=== PATIENT | male | born 1960 | race Caucasian/White ===

== ENCOUNTER → 2017-11-08 | Outpatient (CLI) | payer OTHER | LOC: CARDREHAB 14:30 → RAD 15:00 | DX: R94.31 Abnormal electrocardiogram [ECG] [EKG] (principal) ==

== ENCOUNTER → 2017-11-12 | Outpatient (CLI) | payer OTHER | LOC: VAS 16:06 | DX: R94.31 Abnormal electrocardiogram [ECG] [EKG] (principal) ==

== ENCOUNTER 2019-05-23 17:43 | Emergency (ER) | payer OTHER ==
[2019-05-23] MEDS ORDERED: METOPROLOL SUCC50 M1 PO (18:08)
[2019-05-23 18:52] LABS: EOS # 0.4 (0.04-0.40); EOS % 4.1 % (0.0-4.0); HEMATOCRIT 47.8 % (42.0-52.0); HEMOGLOBIN 16.5 g/dL (13.5-18.0); LYMPH# 1.3 (1.50-4.00); MEAN CELL VOLUME 91 fl (78-100); MEAN CORPUSCULAR HEMOGLOBIN 31 pg (27-31); MEAN CORPUSCULAR HGB CONC 35 g/dL (33-37); MEAN PLATELET VOLUME 10.3 fl (7.4-10.4); MONO # 0.8 (0.20-0.80); NEU # 5.9 (1.40-6.50); PLATELET COUNT 206 K/mm3 (130-400); RED BLOOD COUNT 5.25 M/mm3 (4.20-5.60); RED CELL DISTRIBUTION WIDTH 12.4 % (11.5-14.5); WHITE BLOOD COUNT 8.4 K/mm3 (4.8-10.8)
[2019-05-23 19:00] LABS: ALBUMIN 4.3 g/dL (3.5-5.0)
[2019-05-23 19:01] LABS: CALCIUM 9.4 mg/dL (8.3-10.5)
[2019-05-23 19:03] LABS: TOTAL PROTEIN 7.3 g/dL (6.4-8.3)
[2019-05-23 19:04] LABS: TOTAL BILIRUBIN 0.5 mg/dL (0.2-1.2)
[2019-05-23] MEDS ORDERED: PREDNISONE20 M1 PO (20:17)
[2019-05-23 20:31] VITALS: BP 152/88
== END 2019-05-23 20:30 | disposition home or self-care (01) ==
LOC: ED 17:43
PROVIDERS: Family Medicine
DX: J45.909 Unspecified asthma, uncomplicated (principal); I10 Essential (primary) hypertension; Z90.49 Acquired absence of other specified parts of digestive tract
CPT/HCPCS: J7512

== ENCOUNTER → 2023-05-28 | Outpatient (CLI) | payer OTHER ==
[~2023-05-28] MED LIST: METOPROLOL SUCC50 M1 PO; PREDNISONE20 M1 PO
== END ==
LOC: RAD 13:32
DX: M17.11 Unilateral primary osteoarthritis, right knee (principal); M25.461 Effusion, right knee

== ENCOUNTER 2023-10-19 12:27 | Emergency (ER) | payer OTHER ==
[~2023-10-19] VITALS: Wt 98.3 kg
[~2023-10-19 12:27] MED LIST changes: +ALBUTEROL2.5 MG/3 M IH; +ALDACTONE 25MG25 MG; +BENZONATATE100 M2 PO; +CITALOPRAM HBR10 MG PO; +CLARITIN LIQUI-10 MG; +COUGH100 MG/51 PO; +FARXIGA10 MG; +FOLIC ACID1 MG; +FUROSEMIDE40 MG PO; +KAPSPARGO SPRIN50 MG; +LEVALBUTEROL TA15 GM IH; +LISINOPRIL10 MG; +LOSARTAN POTASS25 MG PO; +METOPROLOL SUC100 M1; +NATURE'S BLEND100 M2; +NEB IH; +PREDNISONE10 MG PO; +QVAR REDIHALE10.6 G1 IH; +ZITHROMAX Z PA250 MG PO
[2023-10-19 13:17] LABS: BASO # 0.06 K/mm3 (0.02-0.10); EOS # 1.52 K/mm3 (0.04-0.40); EOS % 21.9 % (0.0-4.0); HEMOGLOBIN 14.4 g/dL (13.5-18.0); LYMPH# 1.12 K/mm3 (1.50-4.00); MEAN CELL VOLUME 97 fl (78-100); MEAN CORPUSCULAR HEMOGLOBIN 33 pg (27-31); MEAN CORPUSCULAR HGB CONC 34 g/dL (33-37); MEAN PLATELET VOLUME 10.4 fl (7.4-10.4); MONO # 0.54 K/mm3 (0.20-0.80); NEU # 3.71 K/mm3 (1.40-6.50); PLATELET COUNT 173 K/mm3 (130-400); RED BLOOD COUNT 4.33 M/mm3 (4.20-5.60); RED CELL DISTRIBUTION WIDTH 12.5 % (11.5-14.5)
[2023-10-19 13:20] LABS: ALBUMIN 4.2 g/dL (3.4-4.8)
[2023-10-19 13:22] LABS: CALCIUM 9.3 mg/dL (8.3-10.5)
[2023-10-19 13:23] LABS: TOTAL PROTEIN 6.6 g/dL (6.2-8.1)
[2023-10-19 13:25] LABS: TOTAL BILIRUBIN 0.3 mg/dL (0.2-1.2)
[2023-10-19 13:36] LABS: D-DIMER 0.54 mg/L FEU (0.15-0.50)
[2023-10-19] MEDS ORDERED: Iohexol 350 - 100 ML VIAL IV ONE (13:56)
[2023-10-19] MEDS ORDERED: Albuterol 0.083% Nebule (2.5 MG/3 ML) IH ONE (15:00)
[2023-10-19] MEDS ORDERED: Furosemide 40 MG/4 ML VIAL IV ONE (15:15)
[2023-10-19] MEDS ORDERED: LORazepam 2 MG/ML VIAL IV ONE (15:45)
[2023-10-19 16:27] LABS: URINE APPEARANCE CLEAR (CLEAR); URINE COLOR YELLOW (YELLOW)
[2023-10-19 16:28] LABS: URINE BILIRUBIN NEGATIVE (NEGATIVE); URINE BLOOD NEGATIVE (NEGATIVE); URINE GLUCOSE NEGATIVE (NEGATIVE); URINE KETONE NEGATIVE (NEGATIVE); URINE LEUKOCYTE ESTERASE NEGATIVE (NEGATIVE); URINE NITRATE NEGATIVE (NEGATIVE); URINE PROTEIN(semi-quant) NEGATIVE (NEGATIVE)
[2023-10-19 16:29] LABS: URINE WBC 0-1 /hpf (0-3)
[2023-10-19 20:33] VITALS: BP 123/72
== END 2023-10-19 17:30 | disposition short-term general hospital (02) ==
LOC: ED 12:27
PROVIDERS: Nurse Practitioner Family
DX: R06.02 Shortness of breath (principal); J98.09 Other diseases of bronchus, not elsewhere classified
CPT/HCPCS: J1940; J2060; Q9967

== ENCOUNTER 2024-01-18 20:33 | Emergency (ER) | payer OTHER ==
[~2024-01-18] VITALS: Ht 190.5 cm; Wt 98.3 kg
[2024-01-18 21:09] LABS: BASO # 0.06 K/mm3 (0.02-0.10); EOS # 1.04 K/mm3 (0.04-0.40); EOS % 14.9 % (0.0-4.0); HEMATOCRIT 42.2 % (42.0-52.0); HEMOGLOBIN 14.4 g/dL (13.5-18.0); LYMPH# 1.39 K/mm3 (1.50-4.00); MEAN CELL VOLUME 95 fl (78-100); MEAN CORPUSCULAR HEMOGLOBIN 32 pg (27-31); MEAN CORPUSCULAR HGB CONC 34 g/dL (33-37); MEAN PLATELET VOLUME 9.7 fl (7.4-10.4); MONO # 0.53 K/mm3 (0.20-0.80); NEU # 3.94 K/mm3 (1.40-6.50); PLATELET COUNT 199 K/mm3 (130-400); RED BLOOD COUNT 4.45 M/mm3 (4.20-5.60); RED CELL DISTRIBUTION WIDTH 11.8 % (11.5-14.5)
[2024-01-18] MEDS ORDERED: ELIQUIS5 MG PO (21:10)
[2024-01-18] MEDS ORDERED: COREG 3.123.125 MG/T PO (21:11)
[2024-01-18] MEDS ORDERED: Albuterol/Ipratropium 3 MG-0.5 MG/3 ML Neb Soln IH ONE (21:15)
[2024-01-18 21:16] LABS: ALBUMIN 4.2 g/dL (3.4-4.8); SODIUM 137 mmol/L (136-145)
[2024-01-18] MEDS ORDERED: ROXICODONE 55 MG/TAB PO (21:16)
[2024-01-18] MEDS ORDERED: ENTRESTO 24 MG1 EACH PO (21:17)
[2024-01-18 21:18] LABS: CALCIUM 9.6 mg/dL (8.3-10.5)
[2024-01-18 21:19] LABS: GLUCOSE 98 mg/dL (75-110); TOTAL PROTEIN 6.7 g/dL (6.2-8.1)
[2024-01-18 21:20] LABS: CARBON DIOXIDE 23 mmol/L (23-31)
[2024-01-18 21:21] LABS: TOTAL BILIRUBIN 0.4 mg/dL (0.2-1.2)
[2024-01-18 21:24] LABS: AST-SGOT 17 U/L (5-34)
[2024-01-18 21:25] LABS: ALT/SGPT 17 U/L (0-55)
[2024-01-18 21:31] LABS: TROPONIN-I < 0.030 ng/mL (0.00-0.033)
[2024-01-18] MEDS ORDERED: PREDNISONE20 MG PO (21:57)
[2024-01-18] MEDS ORDERED: methylPREDNISolone Sod Succ 125 MG/2 ML VIAL IV ONE (22:00)
[2024-01-18 22:23] VITALS: BP 109/61
== END 2024-01-18 22:23 | disposition home or self-care (01) ==
LOC: ED 20:33
PROVIDERS: Family Medicine
DX: J45.901 Unspecified asthma with (acute) exacerbation (principal)
CPT/HCPCS: J2919

== ENCOUNTER 2024-02-04 14:02 | Outpatient (RCR) | payer OTHER ==
[~2024-02-04] VITALS: Ht 190.5 cm; Wt 92.5 kg
[~2024-02-04 14:02] MED LIST changes: +COREG 3.123.125 MG/T PO; +ELIQUIS5 MG PO; +ENTRESTO 24 MG1 EACH PO; +PREDNISONE20 MG PO; +ROXICODONE 55 MG/TAB PO
== END 2024-02-23 | disposition home or self-care (01) ==
LOC: CARDREHAB
DX: I50.20 Unspecified systolic (congestive) heart failure (principal); Z86.74 Personal history of sudden cardiac arrest

== ENCOUNTER 2024-02-28 08:00 | Outpatient (RCR) | payer OTHER | END 2024-03-24 | disposition home or self-care (01) | LOC: CARDREHAB | DX: I50.20 Unspecified systolic (congestive) heart failure (principal); Z86.74 Personal history of sudden cardiac arrest ==

== ENCOUNTER 2024-03-26 13:00 | Outpatient (RCR) | payer OTHER | END 2024-04-24 | disposition home or self-care (01) | LOC: CARDREHAB | DX: I50.20 Unspecified systolic (congestive) heart failure (principal); Z86.74 Personal history of sudden cardiac arrest ==

== ENCOUNTER → 2024-07-01 | Outpatient (CLI) | payer OTHER | LOC: RAD 15:45 | DX: M25.511 Pain in right shoulder (principal) ==

== ENCOUNTER 2024-07-28 08:07 | Emergency (ER) | payer OTHER ==
[2024-07-28 09:15] VITALS: BP 109/84
== END 2024-07-28 09:15 | disposition home or self-care (01) ==
LOC: ED 08:07
DX: T82.897A Other specified complication of cardiac prosthetic devices, implants and grafts, initial encounter (principal); Z79.01 Long term (current) use of anticoagulants